=== PATIENT | male | born 1985 | race Hispanic/Latino ===

== ENCOUNTER 2021-08-12 18:31 | Emergency (ER) | payer OTHER ==
[~2021-08-12] VITALS: Ht 162.6 cm; Wt 72.6 kg
[2021-08-12 18:35] VITALS: BP 135/89
[2021-08-12] MEDS ORDERED: D-ME1POW16 PO (19:17)
== END 2021-08-12 19:32 | disposition home or self-care (01) ==
LOC: EDH 18:31
DX: J06.9 Acute upper respiratory infection, unspecified (principal); R05.9 Cough, unspecified; Z20.822 Contact with and (suspected) exposure to COVID-19; Z79.899 Other long term (current) drug therapy
CPT/HCPCS: 87635; 87804 ×2; 87880; 99283; C9803

== ENCOUNTER 2022-04-25 09:12 | Emergency (ER) | payer BC ==
[~2022-04-25] VITALS: Ht 162.6 cm; Wt 72.6 kg
[~2022-04-25 09:12] MED LIST: D-ME1POW16 PO
[2022-04-25] MEDS ORDERED: AMOX500C2 PO (09:26)
[2022-04-25 09:39] VITALS: BP 126/74
== END 2022-04-25 09:40 | disposition home or self-care (01) ==
LOC: EDH 09:12
DX: H66.92 Otitis media, unspecified, left ear (principal)